=== PATIENT | male | born 1980 | race American Indian/Alaskan Native ===

== ENCOUNTER 2025-02-07 08:25 | Emergency (ER) | payer OTHER ==
[~2025-02-07] VITALS: Ht 175.3 cm; Wt 79.4 kg
[2025-02-07] MEDS: HYDROcodone/acetaMINOPHEN 10/325 MG TAB PO ONE (09:41)
--- NOTE | 2025-02-07 10:00 | HMCIMG ---
CT MAXILLOFACIAL W/O CONTRAST HISTORY: fall TECHNIQUE: Noncontrast CT maxillofacial was performed. Sagittal and coronal reformats were performed. CT was performed with one or more of the following dose reduction techniques: Automated exposure control, adjustment of the mA and/or kV according to the patient's size, or use of the iterative reconstruction technique. FINDINGS: Facial soft tissue swelling is seen. Comminuted displaced bilateral nasal bone fracture as well as fracture of the nasal septum questionable nondisplaced fracture of the inferior left orbital wall. Mucosal thickening with air-fluid levels seen in the left maxillary sinus. Mucosal thickening also seen in the bilateral ethmoid and left frontal sinus. Visualized mastoid air cells are clear. The orbits appear symmetric. Study is not adequate to evaluate brain parenchyma/dura. IMPRESSION: 1. Facial soft tissue swelling is seen. Comminuted displaced bilateral nasal bone fracture as well as fracture of the nasal septum. Questionable nondisplaced fracture of the inferior left orbital wall. 2. Mucosal thickening with air-fluid levels seen in the left maxillary sinus. Mucosal thickening also seen in the bilateral ethmoid and left frontal sinus.
--- NOTE | 2025-02-07 10:03 | HMCIMG ---
CT HEAD/BRAIN W/O CONTRAST INDICATION: fall TECHNIQUE: CT HEAD/BRAIN W/O CONTRAST. CT was performed with one or more of the following dose reduction techniques: Automated exposure control, adjustment of the mA and/or kV according to the patient's size, or use of the iterative reconstruction technique. Comparison: None FINDINGS: The ventricles and extra ventricular CSF spaces are within normal limits. No mass effect, midline shift or herniation. No extra axial collection. No acute intracranial bleed. See separate report for maxillofacial findings. IMPRESSION: No acute intracranial findings.
--- NOTE | 2025-02-07 10:21 | ERN ---
ED Note History of Present Illness Stated Complaint: S/P FALL FACIAL INJURY Chief Complaint: Mechanical Fall Time Seen by MD: 08:42 Dictation: 44-year-old male presents to the ED for evaluation post fall onset last night. Patient was brought in by [facility] where patient reports he fell face forward which caused an abrasion to his forehead, nasal contusion and bilateral eye ecchymosis, but denies any LOC, vomiting or any other associated symptoms at this time. No blood thinners. Allergies: Coded Allergies: No Known Drug Allergies (Unverified Allergy, Unknown, 02/07/25) Past Medical History Past Medical History: No Pertinent History Surgical History: Surgical History Other: NASAL SX, ROBERTA HERNIA , RT HAND SX Review of System Dictation Constitutional: Positive for for an abrasion Negative for fever,chills, and weight loss Eyes: Positive for bilateral eye ecchymosis ENT: Positive for nasal contusion Cardiovascular: Negative for chest pain, palpitations, and edema Respiratory: Negative for shortness of breath, cough, and wheezing, Abdomen/GI: Negative for abdominal pain, nausea, vomiting, diarrhea, and constipation Back: Negative for injury and pain : Negative for injury, bleeding and discharge MS/Extremity: Negative for injury and deformity Skin: Negative for rash, and discoloration Neuro: Negative for headache, weakness, numbness, tingling, and seizure Psych: Negative for suicide ideation, homicidal ideation, and hallucinations Initial Vital Sign VS Vital Signs Date Time Temp Pulse Resp B/P (MAP) Pulse Ox O2 Delivery O2 Flow Rate FiO2 02/07/25 08:28 98.1 82 18 153/83 95 0 02/07/25 08:42 Room Air* 21 Physical Exam Dictation General: awake, alert, NAD Head/Face: Normocephalic, atraumatic, forehead laceration Eyes: PERRL, EOMI, vision at baseline, periorbital contusion, extraocular movement intact ENT: oral cavity clear, TMs clear, nasal contusion Neck: Trachea midline, supple, no nuchal rigidity Cardiovascular: RRR, normal S1/S2, No MRGs, no JVD Respiratory: CTAB, no respiratory distress, No rales or wheezes Abdomen: Soft, non-tender, non-distended, normal bowel sounds, no guarding or rebound. Skin: Warm, dry, normal turgor, no rash MS/Extremity: Pulses equal, no cyanosis, neurovascular intact, FROM Neuro: COAx4, GCS 15, strength 5/5, CN 2-12 intact, normal cerebellar exam, normal gait, Psych: Normal behavior, mood, and affect normal Results (Laboratory/Radiology) CT Scan Comment: REASON: fall ORDERING PHYSICIAN: DYLAN BURGESS MD PROCEDURE: HEAD WO - CT HEAD/BRAIN W/O CONTRAST CT HEAD/BRAIN W/O CONTRAST INDICATION: fall TECHNIQUE: CT HEAD/BRAIN W/O CONTRAST. CT was performed with one or more of the following dose reduction techniques: Automated exposure control, adjustment of the mA and/or kV according to the patient's size, or use of the iterative reconstruction technique. Comparison: None FINDINGS: The ventricles and extra ventricular CSF spaces are within normal limits. No mass effect, midline shift or herniation. No extra axial collection. No acute intracranial bleed. See separate report for maxillofacial findings. IMPRESSION: No acute intracranial findings. DICTATED BY: DEBORA REA MD DATE: 02/07/25 0959 REASON: fall ORDERING PHYSICIAN: DYLAN BURGESS MD PROCEDURE: MAXFACI WO - CT MAXILLOFACIAL W/O CONTRAST CT MAXILLOFACIAL W/O CONTRAST HISTORY: fall TECHNIQUE: Noncontrast CT maxillofacial was performed. Sagittal and coronal reformats were performed. CT was performed with one or more of the following dose reduction techniques: Automated exposure control, adjustment of the mA and/or kV according to the patient's size, or use of the iterative reconstruction technique. FINDINGS: Facial soft tissue swelling is seen. Comminuted displaced bilateral nasal bone fracture as well as fracture of the nasal septum questionable nondisplaced fracture of the inferior left orbital wall. Mucosal thickening with air-fluid levels seen in the left maxillary sinus. Mucosal thickening also seen in the bilateral ethmoid and left frontal sinus. Visualized mastoid air cells are clear. The orbits appear symmetric. Study is not adequate to evaluate brain parenchyma/dura. IMPRESSION: 1. Facial soft tissue swelling is seen. Comminuted displaced bilateral nasal bone fracture as well as fracture of the nasal septum. Questionable nondisplaced fracture of the inferior left orbital wall. 2. Mucosal thickening with air-fluid levels seen in the left maxillary sinus. Mucosal thickening also seen in the bilateral ethmoid and left frontal sinus. DICTATED BY: DEBORA RAE MD DATE: 02/07/25 0955 ED Course ED Course Orders Procedure Category Date Status Time Ct Head/Brain W/O CT 02/07/25 Resulted Contrast 08:50 Ct Maxillofacial W/O CT 02/07/25 Resulted Contrast 08:50 Hydrocodone/Apap PHA 02/07/25 Complete 10/325 Tab ([place] 10) 09:00 Current Medications Medications (Trade) Dose Ordered Sig/[place] Route PRN Reason Start Time Stop Time Status Last Admin Dose Admin Acetaminophen/ Hydrocodone Bitart ([place] 10) 1 tab ONCE ONCE PO 02/07/25 09:00 02/07/25 09:01 DC 02/07/25 09:41 Vital Signs Date Time Temp Pulse Resp B/P (MAP) Pulse Ox O2 Delivery O2 Flow Rate FiO2 02/07/25 09:42 98.1 64 18 136/65 97 Room Air* 0 21 02/07/25 08:42 97.9 83 13 131/72 96 Room Air* 0 21 02/07/25 08:28 98.1 82 18 153/83 95 0 Medical Decision Making MDM MDM: Differential diagnosis: Nasal fracture, fall, head injury Risk of complication and/or morbidity or mortality of patient management: None Medications-Per medication reconciliation Need for hospitalization: Patient does not meet criteria for hospitalization. Need for emergency major/minor surgery: No There are no social concerns with this patient. Prescription drug management Prescriptions will include symptomatic care I independently interpreted the test that were performed, results were reviewed by me and considered findings on radiology if ordered. Medical management and examination interpretation discussions were had by me with other qualified healthcare professionals as indicated for the patient's care. DX & DISP Disposition: Discharge Departure Impression: Primary Impression: FRACTURE OF NASAL BONES, INIT ENCNTR FOR CLOSED FRACTURE Additional Impression: Fracture of inferior orbital wall Condition: Stable Scripts Ibuprofen/Pseudoephedrine HCl (Advil Cold & Sinus Caplet) 200 Mg-30 Mg Tablet 1 TAB PO TID for allergy symptoms for 10 Days, #30 TAB 0 Refills Prov: DYLAN BURGESS MD 02/07/25 Oxymetazoline HCl (Afrin) 0.05 % [place] 1 SPRAY NS BID for 3 Days, #15 ML 0 Refills Prov: DYLAN BURGESS MD 02/07/25 Cephalexin Monohydrate (Keflex) 500 Mg Cap 500 MG PO QID for 7 Days, #28 CAP Prov: DYLAN BURGESS MD 02/07/25 Referrals: SELF,REFERRAL (PCP) DYLAN BURGESS MD Feb 07, 2025 10:21
[2025-02-07] MEDS ORDERED: CEPH500B PO (10:52)
[2025-02-07] MEDS ORDERED: IBUP1TAB PO (10:52)
[2025-02-07] MEDS ORDERED: OXYM30SP27 NS (10:52)
[2025-02-07 11:13] VITALS: BP 147/74; PULSE 79; RESP 16; TEMP 98.1; O2SAT 96
== END 2025-02-07 11:11 | disposition home or self-care (01) ==
LOC: EDH 08:25 → EEVIPCON 08:25 → EDH 11:11
DX: S02.2XXA Fracture of nasal bones, initial encounter for closed fracture (principal); S02.85XA Fracture of orbit, unspecified, initial encounter for closed fracture; W18.39XA Other fall on same level, initial encounter; Y93.89 Activity, other specified; Y92.89 Other specified places as the place of occurrence of the external cause; Y99.8 Other external cause status
CPT/HCPCS: 70450; 70486; 99284